=== PATIENT | male | born 1975 | race Caucasian/White ===

== ENCOUNTER 2023-04-30 21:06 | Emergency (ER) | payer MEDICAID, SELFPAY ==
[2023-04-30 21:07] VITALS: BP 158/95; PULSE 90; RESP 18; TEMP 36.6; O2SAT 100; BMI 34.0
[2023-04-30 21:30] VITALS: BP 153/109; PULSE 90; O2SAT 97
--- NOTE | 2023-04-30 21:55 | CT_ITS ---
PROCEDURE INFORMATION: Exam: CT Abdomen And Pelvis With Contrast Exam date and time: 04/30/2023 10:17 PM Age: 48 years old Clinical indication: Abdominal pain; Epigastric; Additional info: Epigastric and periumbilical abd pain, ttp TECHNIQUE: Imaging protocol: Computed tomography of the abdomen and pelvis with contrast. Radiation optimization: All CT scans at this facility use at least one of these dose optimization techniques: automated exposure control; mA and/or kV adjustment per patient size (includes targeted exams where dose is matched to clinical indication); or iterative reconstruction. Contrast material: ISOVUE; Contrast volume: 75 ml; Contrast route: IV; REPORTING DATA: Count of CT and Cardiac NM exams in prior 12 months: This patient has received 0 known CTs and 0 known cardiac nuclear medicine studies in the 12 months prior to the current study. COMPARISON: No relevant prior studies available. FINDINGS: Liver: Normal. No mass. Gallbladder and bile ducts: Normal. No calcified stones. No ductal dilation. Pancreas: Normal. No ductal dilation. Spleen: Normal. No splenomegaly. Adrenal glands: Normal. No mass. Kidneys and ureters: Normal. No hydronephrosis. Stomach and bowel: There is colonic diverticulosis with no significant diverticuli are inflammation. There is mild scattered wall thickening in the descending colon and sigmoid versus underdistention. No evidence of bowel obstruction. Appendix: The appendix is normal. Intraperitoneal space: Unremarkable. No free air. No significant fluid collection. Vasculature: Normal for age. No abdominal aortic aneurysm. Lymph nodes: Unremarkable. No enlarged lymph nodes. Urinary bladder: The bladder wall is thickened with incomplete distention. Reproductive: Unremarkable as visualized. Bones/joints: Unremarkable. No acute fracture. Soft tissues: There is a small supraumbilical fat containing hernia present. IMPRESSION: 1. Mild wall thickening versus underdistention in the distal colon. Correlate for colitis clinically. There are also distal colonic diverticuli present without significant diverticular inflammation. 2. The bladder wall is thickened suspicious for possible cystitis. 3. Small-sized fat containing supraumbilical ventral abdominal wall hernia.
--- NOTE | 2023-04-30 21:56 | [facility].EDGENADL ---
Discharge Plan Disposition Patient Disposition: Home, Self-Care Chief Complaint: Abdominal Pain Referrals Follow up/Referrals: Provider,MD Mesfin [Primary Care Provider] - See instructions Scott Mccarthy MD [Staff Physician] - See instructions Activity Restrictions/Add. Instructions Additional Instructions/Restrictions: Call your family doctor to establish care for this visit to the emergency department and schedule follow-up within 48 hours to ensure improvement. If you have any worsening of your condition or any other concerning signs or symptoms, return to the emergency department or your primary care doctor for further evaluation. Take Tylenol 1000 mg every 6 hours (4 times daily) and ibuprofen 400 mg every 6 hours (4 times daily) as needed with food and water to prevent GI upset and kidney damage. Clinical Impressions Clinical Impression: Abdominal pain Qualifiers: Abdominal location: periumbilical Qualified Code(s): R10.33 - Periumbilical pain Ventral hernia Qualifiers: Obstruction and gangrene presence: without obstruction or gangrene Qualified Code(s): K43.9 - Ventral hernia without obstruction or gangrene Instructions Patient Instructions: DI for Acute Abdominal Pain Discharge ED Provider: [facility] <J Noble Michaud MD - Last Filed: 04/30/23 23:00> General Chief complaint: Abdominal Pain Stated complaint: abd pain Time Seen by Provider: 04/30/23 21:51 Mode of Arrival: Ambulatory Source of Information: Patient Limitations: No Limitations Description of Symptoms (Recalled from ER Triage Doc. by RN): Presents to ED with c/o mid abd pain that is tender upon palpation that started yesterday and has progressively gotten worse. Patient states it is worse when he bends over. Denies taking any meds [employer]. -blood thinner. -N/V/D. PMH:hiatal hernia surgery x2. History of Present Illness HPI narrative: Patient is a 48-year-old male presenting today with abdominal pain has been progressively worsening and constant over the last 48 hours that is located epigastric and periumbilical in the midline. Denies any nausea vomiting or diarrhea. No changes in stools no change in urination no chest pain or shortness of breath. Has a history of bilateral inguinal hernia repair but nothing in his upper abdomen. States this is worse with movement but also has been constant over the last 48 hours. Still having bowel movements no concerns there. Related Data Allergies Allergy/AdvReac Type Severity Reaction Status Date / Time Penicillins AdvReac Verified 04/30/23 22:03 PFS <Lorene Michaud MD - Last Filed: 04/30/23 23:00> [facility] Disclaimer: The information contained in this section may have been updated after the patient was seen, as this information can be updated by other users. Social History (Updated 04/30/23 @ 23:00 by Lorene Michaud MD) Smoking Status: Never smoker alcohol intake: never current occupational status: other Travel in the last 8 weeks: None <Lorene Michaud MD - Last Filed: 04/30/23 23:00> ROS Obtained: Yes All systems reviewed & no additional complaints except as documented Physical Exam <Lorene Michaud MD - Last Filed: 04/30/23 23:00> General General appearance: alert and in no apparent distress Respiratory Respiratory exam: Present normal lung sounds bilaterally; Absent respiratory distress Cardiovascular Cardiovascular exam: Present regular rate; Absent tachycardia Abdominal Exam Abdominal exam: Present soft and tenderness (Epigastric and mid periumbilical abdominal tenderness no rebound or guarding no masses) Neurological Exam Neurological exam: Present alert and oriented X3 Medical Decision Making <Lorene Michaud MD - Last Filed: 04/30/23 23:00> Sameer Inquiry Pt receiving controlled substance: No Vital Signs: 04/30/23 21:07 04/30/23 21:30 04/30/23 22:31 Temperature 97.8 F Temperature Source Oral Pulse Rate 90 75 Pulse Rate [Right] 90 Re
[2023-04-30 21:59] LABS: Microscopic, Urine URINE MICROSCOPIC (MICROSCOPIC)
[2023-04-30 22:05] LABS: Chloride 106 mmol/L (98-107); Potassium 4.1 mmoL/L (3.5-5.1); Sodium 142 mmol/L (136-145)
[2023-04-30 22:05] LABS: Appearance,Urine CLEAR (Clear); Bilirubin,Urine Negative (Negative); Blood, Urine Negative (Negative); Color,Urine YELLOW (Yellow); Glucose,Urine (UA) Negative (Negative); Ketones,Urine Negative (Negative); Leukocyte Esterase,Urine Negative (Negative); Nitrate,Urine Negative (Negative); Protein,Urine Negative (Negative); Specific Gravity, Urine >= 1.030 (1.005-1.030); Urobilinogen,Urine 0.2 EU/dl (0.2)
[2023-04-30 22:07] LABS: Alanine Aminotransferase 26 U/L (12-78); Aspartate Amino Transferase 36 U/L (17-59); Blood Urea Nitrogen 18 mg/dl (9-20); Creatinine Clearance Estimated 162 mL/min (50-200); Estimated Glomerular Filt Rate 80 ml/min (>60); GFR (African American) 97 ML/MIN (>60)
[2023-04-30 22:08] LABS: Albumin Level 4.8 g/dl (3.5-5.0); Albumin/Globulin Ratio 1.6 (1.1-1.8); Alkaline Phosphatase 58 U/L (38-126); Anion Gap 11.1 mEq/L (5-15); Bilirubin,Total 0.6 mg/dl (0.2-1.3); Calcium 8.7 mg/dl (8.4-10.2); Carbon Dioxide 29 mmol/L (22.0-30.0); Glucose 77 mg/dl (74-100); Lipase 57 U/L (23-300); Total Protein,Serum 7.8 g/dl (6.3-8.2)
[2023-04-30 22:11] LABS: Basophils % 0.5 % (0.1-2.0); Eosinophils # 0.2 K/mm3 (0.0-0.4); Eosinophils % 1.7 % (0.1-12.0); Hematocrit 45.8 % (42.0-52.0); Hemoglobin 15.7 g/dL (14.1-18.0); Lymphocytes # 2.1 K/mm3 (0.7-4.5); Lymphocytes % 24.2 % (10-50); Mean Corpuscular HGB Conc 34.3 g/dL (31.8-35.4); Mean Corpuscular Hemoglobin 31.4 pg (27.0-31.2); Mean Corpuscular Volume 91.6 fl (80-94); Mean Platelet Volume 7.6 fl (7.4-10.4); Monocytes # 0.4 K/mm3 (0.1-1.0); Neutrophils # 6.2 K/mm3 (1.8-7.8); Neutrophils % 69.6 % (37.0-80.0); Platelet Count 267 K/mm3 (142-424); Red Cell Distribution Width 13.8 % (11.5-17.5); White Blood Count 8.8 K/mm3 (4.8-10.8)
[2023-04-30 22:31] VITALS: BP 169/108; PULSE 75; RESP 18; O2SAT 97
[2023-04-30 22:37] LABS: Squamous Epithelial Cell,Urine Occasional #/hpf (0-5); WBC,Urine Occasional #/hpf (0-3)
[2023-04-30 23:34] VITALS: BP 162/101; PULSE 91; RESP 20; TEMP 36.6; O2SAT 98
== END 2023-04-30 23:36 | disposition home or self-care (01) ==
PROVIDERS: Student in an Organized Health Care Education/Training Program; Emergency Provider Emergency Medicine
DX: R10.33 Periumbilical pain (principal); K43.9 Ventral hernia without obstruction or gangrene
CPT/HCPCS: 74177; 80053; 81001; 83690; 85025; 96361; 96374; 96375; 99285; J2405; Q9967

== ENCOUNTER 2023-10-14 20:23 | Observation (INO) | payer MEDICAID, SELFPAY ==
[2023-10-14] VITALS (8 sets, daily range): BP systolic 130–147; BP diastolic 85–107; PULSE 74–97; RESP 14–19; TEMP 36.9; O2SAT 94–95; BMI 34.7
--- NOTE | 2023-10-14 20:21 | ECG_ITS ---
APPROVED REPORT Exam: Resting ECG HR:89 bpm ECG Measurements Heart Rate 89 AXES OH 167 P 53 QRSd 98 QRS 24 QT 364 T 36 QTc 410 Conclusion SINUS RHYTHM NORMAL ECG UNCONFIRMED REPORT Electronically signed by : JOHN HAMMONDS, 10/17/2023 06:54:31
--- NOTE | 2023-10-14 20:28 | ED_ITS ---
<Statement entered by Grady Vergara MD - 10/14/23 23:23> I was consulted by the SHANNAN, and we discussed the complexity of the problems being addressed. I approved the treatment and management plan for this patient's care in the emergency department, thus performing a substantive portion of the medical decision making. Grady Vergara MD Discharge Plan Disposition Patient Disposition: Admitted Prescriptions Prescriptions: No Action No Known Home Medications Referrals Follow up/Referrals: Provider,Mesfin, [Primary Care Provider] - See instructions Clinical Impressions Clinical Impression: Chest pain Discharge ED Provider: Grady Vergara HPI <VARGHESE Moran - Last Filed: 10/14/23 22:58> General Chief Complaint: Chest Pain Stated Complaint: Chest pain Time Seen by Provider: 10/14/23 20:28 History of Present Illness HPI narrative: Patient presents for evaluation of chest pain. 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 Patient states that it radiated to his upper back up the left side of his neck and partially down his left upper extremity. It did maryam somewhat with rest however soon as he began exerting himself again it came back. Patient states that it is worst his pain was a 9 out of 10 and currently he rates it as a 4 out of 10. Denies diaphoresis nausea vomiting fever chills hemoptysis hematochezia melena. He has no known significant past medical history and is on no home medications. Related Data Home Medications Medication Instructions Recorded Confirmed No Known Home Medications 05/10/23 05/10/23 Allergies Allergy/AdvReac Type Severity Reaction Status Date / Time Penicillins AdvReac Verified 05/10/23 13:45 PFSH <VARGHESE Moran - Last Filed: 10/14/23 22:58> [facility] Disclaimer: The information contained in this section may have been updated after the patient was seen, as this information can be updated by other users. Surgical History (Updated 05/10/23 @ 13:47 by JAMIE Kelly) History of left knee surgery History of repair of hiatal hernia Social History Smoking Status: Former smoker alcohol intake: never current occupational status: other Travel in the last 8 weeks: None <VARGHESE Moran Last Filed: 10/14/23 22:58> ROS Obtained: Yes Systems reviewed as appropriate & no additional complaints except as documented Physical Exam <VARGHESE Moran Last Filed: 10/14/23 22:58> General General appearance: alert and in no apparent distress Head Head exam: atraumatic and normal inspection Eye Eye exam: Present normal appearance, PERRL and EOMI ENT ENT exam: Present normal exam, normal oropharynx and mucous membranes moist Neck Neck exam: Present normal inspection and full ROM; Absent lymphadenopathy Chest Chest inspection: Present normal inspection and symmetric chest wall rise; Absent tenderness Respiratory Respiratory exam: Present normal lung sounds bilaterally; Absent respiratory distress, wheezes, stridor or accessory muscle use Cardiovascular Cardiovascular exam: Present regular rate, normal rhythm, normal heart sounds, +S1 and +S2 Abdominal Exam Abdominal exam: Present soft and normal bowel sounds; Absent tenderness Extremities Exam Extremities exam: Present normal inspection and full ROM Back Exam Back exam: Present normal inspection and full ROM; Absent tenderness Neurological Exam Neurological exam: Present alert and oriented X3 Psychiatric Psychiatric exam: Present normal affect and normal mood Skin Skin exam: Present warm, dry and normal color HEART Score <VARGHESE Moran Last Filed: 10/14/23 22:58> HEART Score HEART Score assessment performed?: Yes History (anamnesis): Slightly suspicious ECG: Normal Age: 45-65 years Risk factors: No known risk factors Troponin: </= normal limit HEART Score: 1 Critical Care <VARGHESE Moran Last Filed: 10/14/23 22:58> Critical Care Time Critical Care Time: No Medical Decision Making <VARGHESE Moran Last Filed: 10/14/23 22:58> Medical Records Medical records reviewed: Yes I reviewed the patient's medical records. Sameer Inquiry Pt receiving controlled substance: No Vital Signs Vital Signs: 10/14/23 20:23 10/14/23 20:23 10/14/23 20:30 Temperature 98.4 F Temperature Source Oral Pulse Rate 97 H 90 Pulse Rate [Left] 97 H Respiratory Rate 14 16 Blood Pressure 145/107 H Blood Pressure [Right Arm] 143/94 H Blood Pressure Mean 116 Blood Pressure Mean [Right Arm] 110 02 Sat by Pulse Oximetry 95 94 L Oxygen Delivery Method Room Air Room Air 10/14/23 21:00 Temperature Temperature Source Pulse Rate 82 Pulse Rate [Left] Respiratory Rate 16 Blood Pressure 134/97 H Blood Pressure [Right Arm] Blood Pressure Mean 109 Blood Pressure Mean [Right Arm] 02 Sat by Pulse Oximetry 94 L Oxygen Delivery Method Room Air Lab Data Lab results reviewed: Yes I reviewed the patient's lab results. Labs: Lab Results 10/14/23 20:30: WBC 12.5 H, RBC 5.65, Hgb 16.9, Hct 52.7 H, MCV 93.3, MCH 30.0, MCHC 32.2, RDW 13.5, Plt Count 338, MPV 7.9, Neut % (Auto) 75.1, Lymph % (Auto) 18.6, [place] % (Auto) 4.9, Eos % (Auto) 0.6, Baso % (Auto) 0.9, Neut # (Auto) 9.4 H, Lymph # (Auto) 2.3, [place] # (Auto) 0.6, Eos # (Auto) 0.1, Baso # (Auto) 0.1, PT 11.1, INR 1.03, D-Dimer 0.31, Sodium 143, Potassium 4.0, Chloride 108 H, Carbon Dioxide 25, Anion Gap 14.0, BUN 18, Creatinine 1.10, Estimated Creat Clear 150, Estimated GFR 71, Est GFR ( Amer) 86, Glucose 98, Calcium 9.8, Total Bilirubin 1.4 H, AST 32, ALT 25, Alkaline Phosphatase 58, Troponin I < 0.01, Total Protein 7.9, Albumin 4.8, Globulin 3.1, Albumin/Globulin Ratio 1.5, TSH 1.12 10/14/23 20:30 10/14/23 20:30 Response Orders (Tests/Meds): ED MEDICATIONS Generic Name Dose Route Start Last Admin Trade Name Freq PRN Reason Stop Dose Admin Acetaminophen 650 mg 10/14/23 22:53 Acetaminophen 325mg Tab PO 11/13/23 22:52 Q4HP PRN Fever or Mild Pain (1-3) Enoxaparin Sodium 40 mg 10/15/23 09:00 Enoxaparin 40mg/0.4ml Syringe SQ 11/14/23 08:59 DAILY HUGO Morphine Sulfate 2 mg 10/14/23 22:53 Morphine 2mg/Ml Syringe IV 11/13/23 22:52 Q2HP PRN Severe Pain (7-10) Nicotine 21 mg 10/14/23 22:53 Nicotine 21mg/24hr Patch TD 11/13/23 22:52 DAILYP PRN Nicotine Cravings Nitroglycerin 0.4 mg 10/14/23 22:53 Nitroglycerin 0.4mg Sl Tablet SL 11/13/23 22:52 Q5MINP PRN Chest Pain Pantoprazole Sodium 40 mg 10/15/23 09:00 Pantoprazole 40mg Tablet PO 11/14/23 08:59 DAILY HUGO Discontinued Medications Generic Name Dose Route Start Last Admin Trade Name Freq PRN Reason Stop Dose Admin Acetaminophen 1,000 mg 10/14/23 20:35 10/14/23 20:44 Acetaminophen 1,000mg/100ml Vial IV 10/14/23 20:36 1,000 mg ONCE ONE Administration Aspirin 325 mg 10/14/23 20:49 10/14/23 21:03 Aspirin 325mg Tablet PO 10/14/23 20:50 325 mg ONCE ONE Administration Belladonna Alkaloids 60 ml 10/14/23 20:49 10/14/23 21:04 Belladonna Alkaloids 60 Ml Ml PO 10/14/23 20:50 60 ml ONCE ONE Administration Ketorolac Tromethamine 15 mg 10/14/23 20:35 10/14/23 20:43 Ketorolac 30mg/Ml Vial IV 10/14/23 20:36 15 mg ONCE ONE Administration ORDERS Category Date Time Status Cardiology Consult [Consult to Cardiology] [CONS] Cons 10/14/23 22:53 Active Routine Chest XR -- portable [XR chest portable] Stat Exams 10/14/23 20:35 Completed CBC w/Auto Diff [Complete Blood Count Auto Diff] Stat Lab 10/14/23 20:30 Completed CMP [Comprehensive Metabolic Panel] Stat Lab 10/14/23 20:30 Completed Complete Blood Count Auto Diff AMLAB Lab 10/15/23 06:00 Ordered Comprehensive Metabolic Panel AMLAB Lab 10/15/23 06:00 Ordered D-Dimer Stat Lab 10/14/23 20:30 Completed INR [Prothrombin Time INR] Stat Lab 10/14/23 20:30 Completed Lipid Panel AMLAB Lab 10/15/23 06:00 Ordered Magnesium Routine Lab 10/14/23 22:53 Ordered Phosphorous AMLAB Lab 10/15/23 06:00 Ordered Rapid PCR Covid and Flu A/B Stat Lab 10/14/23 21:13 Ordered TSH [Thyroid Stimulating Hormone] Stat Lab 10/14/23 20:30 Completed Trop I [Troponin I] Stat Lab 10/14/23 20:30 Completed Troponin I Q3H Lab 10/14/23 22:36 Received Troponin I Q3H Lab 10/15/23 02:45 Ordered MDM Narrative Medical Decision Narrative: In summary patient is a 48-year-old male who presents to the emergency department for evaluation of pain. Patient is dynamically stable satting at 95% on room air with respiratory rate of 14 upon arrival, and afebrile. Physical exam is unremarkable and nonfocal including reproducible chest back or shoulder pain, no nuchal rigidity, Leo Coma Score 15, normal breath sounds without any adventitious sounds, no carotid bruits or cardiac murmurs.. Differential diagnosis includes ACS versus PE versus dissection versus GERD versus esophagitis etc. Initial workup will be conducted with hematologic labs, twelve-lead EKG, plain film chest x-ray, urinalysis. Initial interventions include Toradol Tylenol aspirin and GI cocktail. Initial workup reviewed by me shows an undetectable troponin and normal D-dimer slightly elevated white count left shift but the remainder of his hematologic workup is unremarkable, his twelve-lead EKG does not show evidence of ACS, informal interpretation plain film chest x-ray shows no evidence of acute disease. Upon repeat evaluation patient has had some moderate improvement with Toradol Tylenol Decadron GI cocktail. Given this I discussed patient management with hospital medicine and they were agreeable for admission for further workup. Patient verbalized understanding and agreement. <Grady Vergara MD - Last Filed: 10/14/23 20:59> Vital Signs Vital Signs: 10/14/23 20:23 10/14/23 20:23 10/14/23 20:30 Temperature 98.4 F Temperature Source Oral Pulse Rate 97 H 90 Pulse Rate [Left] 97 H Respiratory Rate 14 16 Blood Pressure 145/107 H Blood Pressure [Right Arm] 143/94 H Blood Pressure Mean 116 Blood Pressure Mean [Right Arm] 110 02 Sat by Pulse Oximetry 95 94 L Oxygen Delivery Method Room Air Room Air 10/14/23 21:00 Temperature Temperature Source Pulse Rate 82 Pulse Rate [Left] Respiratory Rate 16 Blood Pressure 134/97 H Blood Pressure [Right Arm] Blood Pressure Mean 109 Blood Pressure Mean [Right Arm] 02 Sat by Pulse Oximetry 94 L Oxygen Delivery Method Room Air Lab Data Labs: Lab Results 10/14/23 20:30: WBC 12.5 H, RBC 5.65, Hgb 16.9, Hct 52.7 H, MCV 93.3, MCH 30.0, MCHC 32.2, RDW 13.5, Plt Count 338, MPV 7.9, Neut % (Auto) 75.1, Lymph % (Auto) 18.6, [place] % (Auto) 4.9, Eos % (Auto) 0.6, Baso % (Auto) 0.9, Neut # (Auto) 9.4 H, Lymph # (Auto) 2.3, [place] # (Auto) 0.6, Eos # (Auto) 0.1, Baso # (Auto) 0.1, PT 11.1, INR 1.03, D-Dimer 0.31, Sodium 143, Potassium 4.0, Chloride 108 H, Carbon Dioxide 25, Anion Gap 14.0, BUN 18, Creatinine 1.10, Estimated Creat Clear 150, Estimated GFR 71, Est GFR ( Amer) 86, Glucose 98, Calcium 9.8, Total Bilirubin 1.4 H, AST 32, ALT 25, Alkaline Phosphatase 58, Troponin I < 0.01, Total Protein 7.9, Albumin 4.8, Globulin 3.1, Albumin/Globulin Ratio 1.5, TSH 1.12 Response Orders (Tests/Meds): ED MEDICATIONS Generic Name Dose Route Start Last Admin Trade Name Freq PRN Reason Stop Dose Admin Acetaminophen 650 mg 10/14/23 22:53 Acetaminophen 325mg Tab PO 11/13/23 22:52 Q4HP PRN Fever or Mild Pain (1-3) Enoxaparin Sodium 40 mg 10/15/23 09:00 Enoxaparin 40mg/0.4ml Syringe SQ 11/14/23 08:59 DAILY HUGO Morphine Sulfate 2 mg 10/14/23 22:53 Morphine 2mg/Ml Syringe IV 11/13/23 22:52 Q2HP PRN Severe Pain (7-10) Nicotine 21 mg 10/14/23 22:53 Nicotine 21mg/24hr Patch TD 11/13/23 22:52 DAILYP PRN Nicotine Cravings Nitroglycerin 0.4 mg 04/14/24 22:53 Nitroglycerin 0.4mg Sl Tablet SL 11/13/23 22:52 Q5MINP PRN Chest Pain Pantoprazole Sodium 40 mg 10/15/23 09:00 Pantoprazole 40mg Tablet PO 11/14/23 08:59 DAILY HUGO Discontinued Medications Generic Name Dose Route Start Last Admin Trade Name Freq PRN Reason Stop Dose Admin Acetaminophen 1,000 mg 10/14/23 20:35 10/14/23 20:44 Acetaminophen 1,000mg/100ml Vial IV 10/14/23 20:36 1,000 mg ONCE ONE Administration Aspirin 325 mg 10/14/23 20:49 10/14/23 21:03 Aspirin 325mg Tablet PO 10/14/23 20:50 325 mg ONCE ONE Administration Belladonna Alkaloids 60 ml 10/14/23 20:49 10/14/23 21:04 Belladonna Alkaloids 60 Ml Ml PO 10/14/23 20:50 60 ml ONCE ONE Administration Ketorolac Tromethamine 15 mg 10/14/23 20:35 10/14/23 20:43 Ketorolac 30mg/Ml Vial IV 10/14/23 20:36 15 mg ONCE ONE Administration ORDERS Category Date Time Status Cardiology Consult [Consult to Cardiology] [CONS] Cons 10/14/23 22:53 Active Routine Chest XR -- portable [XR chest portable] Stat Exams 10/14/23 20:35 Completed CBC w/Auto Diff [Complete Blood Count Auto Diff] Stat Lab 10/14/23 20:30 Completed CMP [Comprehensive Metabolic Panel] Stat Lab 10/14/23 20:30 Completed Complete Blood Count Auto Diff AMLAB Lab 10/15/23 06:00 Ordered Comprehensive Metabolic Panel AMLAB Lab 10/15/23 06:00 Ordered D-Dimer Stat Lab 10/14/23 20:30 Completed INR [Prothrombin Time INR] Stat Lab 10/14/23 20:30 Completed Lipid Panel AMLAB Lab 10/15/23 06:00 Ordered Magnesium Routine Lab 10/14/23 22:53 Ordered Phosphorous AMLAB Lab 10/15/23 06:00 Ordered Rapid PCR Covid and Flu A/B Stat Lab 10/14/23 21:13 Ordered TSH [Thyroid Stimulating Hormone] Stat Lab 10/14/23 20:30 Completed Trop I [Troponin I] Stat Lab 10/14/23 20:30 Completed Troponin I Q3H Lab 10/14/23 22:36 Received Troponin I Q3H Lab 10/15/23 02:45 Ordered ECG Data Tracing #1: ECG Narrative: Independently interpreted by me, rate is 89, rhythm is regular, axis is normal, no ST elevation in anatomical contiguous leads, QTc 410.
--- NOTE | 2023-10-14 20:35 | XR_ITS ---
PROCEDURE INFORMATION: Exam: XR Chest Exam date and time: 10/14/2023 8:46 PM Age: 48 years old Clinical indication: Pain; Chest pressure; Additional info: Chest pain TECHNIQUE: Imaging protocol: Radiologic exam of the chest. Views: 1 view. Total images: 1 COMPARISON: CT ABDOMEN PELVIS W CON 04/30/2023 10:17 PM FINDINGS: Lungs: Unremarkable. No consolidation. No pulmonary vascular congestion or edema. Pleural spaces: Unremarkable. No pleural effusion. No pneumothorax. Heart/Mediastinum: Unremarkable. No cardiomegaly. No mediastinal widening or hilar enlargement. Bones/joints: Unremarkable. IMPRESSION: No radiographically acute cardiopulmonary process.
[2023-10-14 20:43] LABS: Basophils # 0.1 K/mm3 (0-0.2); Basophils % 0.9 % (0.1-2.0); Eosinophils # 0.1 K/mm3 (0.0-0.4); Eosinophils % 0.6 % (0.1-12.0); Hematocrit 52.7 % (42.0-52.0); Hemoglobin 16.9 g/dL (14.1-18.0); Lymphocytes # 2.3 K/mm3 (0.7-4.5); Lymphocytes % 18.6 % (10-50); Mean Corpuscular HGB Conc 32.2 g/dL (31.8-35.4); Mean Corpuscular Volume 93.3 fl (80-94); Mean Platelet Volume 7.9 fl (7.4-10.4); Monocytes # 0.6 K/mm3 (0.1-1.0); Monocytes % 4.9 % (1.7-9.3); Neutrophils # 9.4 K/mm3 (1.8-7.8); Neutrophils % 75.1 % (37.0-80.0); Platelet Count 338 K/mm3 (142-424); Red Blood Count 5.65 M/mm3 (4.60-6.20); Red Cell Distribution Width 13.5 % (11.5-17.5); White Blood Count 12.5 K/mm3 (4.8-10.8)
[2023-10-14] MEDS: KETOROLAC 30MG/ML VIAL 15 MG IV (20:43)
[2023-10-14 20:44] LABS: Chloride 108 mmol/L (98-107); Sodium 143 mmol/L (136-145)
[2023-10-14] MEDS: ACETAMINOPHEN 1,000MG/100ML VIAL 1000 MG IV (20:44)
[2023-10-14 20:46] LABS: Alanine Aminotransferase 25 U/L (12-78); Aspartate Amino Transferase 32 U/L (17-59); Bilirubin,Total 1.4 mg/dl (0.2-1.3); Blood Urea Nitrogen 18 mg/dl (9-20); Creatinine Clearance Estimated 150 mL/min (50-200); Estimated Glomerular Filt Rate 71 ml/min (>60); GFR (African American) 86 ML/MIN (>60)
[2023-10-14 20:47] LABS: Albumin Level 4.8 g/dl (3.5-5.0); Albumin/Globulin Ratio 1.5 (1.1-1.8); Alkaline Phosphatase 58 U/L (38-126); Calcium 9.8 mg/dl (8.4-10.2); Carbon Dioxide 25 mmol/L (22.0-30.0); Globulin 3.1 g/dL (1.3-3.2); Glucose 98 mg/dl (74-100); Total Protein,Serum 7.9 g/dl (6.3-8.2)
[2023-10-14 20:49] LABS: INR 1.03 (0.9-1.1); Prothrombin Time 11.1 seconds (10.1-12.5)
[2023-10-14 21:03] LABS: Troponin I < 0.01 ng/ml (0.00-0.034)
[2023-10-14] MEDS: ASPIRIN 325MG TABLET 325 MG PO (21:03)
[2023-10-14] MEDS: BELLADONNA ALKALOIDS 60 ML ML PO (21:04)
[2023-10-14 21:18] LABS: Thyroid Stimulating Hormone 1.12 uIU/mL (0.465-4.68)
[2023-10-14 21:31] LABS: D-Dimer 0.31 ug/mL (0.0-0.5)
--- NOTE | 2023-10-14 22:56 | P.HP_ITS ---
History of Present Illness *Admission Date: 10/14/23 *Reason for visit:: CP *History of present illness: This is a 48 yo obese male with apparent no significant previous medical history other than hiatal hernia repair x2 presented to ED for evaluation of chest pain. 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 Patient states that it radiated to his upper back up the left side of his neck and partially down his left upper extremity. It did maryam somewhat with rest however soon as he began exerting himself again it came back. Patient states that it is worst his pain was a 9 out of 10 and currently he rates it as a 4 out of 10. Denies diaphoresis nausea vomiting fever chills hemoptysis hematochezia melena. He has no known significant past medical history and is on no home medications. Admitt ed for further work up. [facility] Disclaimer: The information contained in this section may have been updated after the patient was seen, as this information can be updated by other users. Surgical History History of left knee surgery History of repair of hiatal hernia Social History Smoking Status: Former smoker alcohol intake: never current occupational status: retired and other Travel in the last 8 weeks: None Review of Systems Review of Systems Review of systems:: pertinent systems reviewed and negative unless documented below Meds Home Medications and Allergies Home Medications Medication Instructions Recorded Confirmed Type No Known Home Medications 05/10/23 10/15/23 History New Prescriptions to Start Prescriptions: Allergies Allergy/AdvReac Type Severity Reaction Status Date / Time Penicillins AdvReac Verified 05/10/23 13:45 Exam Data for Last 24 hours Vital signs and Labs for Last 24 Hours: Temp Pulse Resp BP Pulse Ox O2 Del Method 98.4 F 82 16 134/97 H 94 L Room Air 10/14/23 20:23 10/14/23 21:00 10/14/23 21:00 10/14/23 21:00 10/14/23 21:00 10/14/23 21:00 Laboratory Results - last 24 hr 10/14/23 20:30: WBC 12.5 H, RBC 5.65, Hgb 16.9, Hct 52.7 H, MCV 93.3, MCH 30.0, MCHC 32.2, RDW 13.5, Plt Count 338, MPV 7.9, Neut % (Auto) 75.1, Lymph % (Auto) 18.6, [place] % (Auto) 4.9, Eos % (Auto) 0.6, Baso % (Auto) 0.9, Neut # (Auto) 9.4 H, Lymph # (Auto) 2.3, [place] # (Auto) 0.6, Eos # (Auto) 0.1, Baso # (Auto) 0.1, PT 11.1, INR 1.03, D-Dimer 0.31, Sodium 143, Potassium 4.0, Chloride 108 H, Carbon Dioxide 25, Anion Gap 14.0, BUN 18, Creatinine 1.10, Estimated Creat Clear 150, Estimated GFR 71, Est GFR ( Amer) 86, Glucose 98, Calcium 9.8, Total Bilirubin 1.4 H, AST 32, ALT 25, Alkaline Phosphatase 58, Troponin I < 0.01, Total Protein 7.9, Albumin 4.8, Globulin 3.1, Albumin/Globulin Ratio 1.5, TSH 1.12 I & O for Last 24 hours: Intake & Output 10/11/23 10/12/23 10/13/23 10/14/23 23:59 23:59 23:59 23:59 Weight 129.274 kg Constitutional Constitutional: no acute distress *Routine HEENT Exam Head: Present normocephalic Eye: Present EOMI and PERRL ENT: Present mucous membranes moist *Routine Neck Exam Neck: Present supple; Absent lymphadenopathy *Routine Respiratory Exam Respiratory: Present CTA bilaterally *Routine Cardiovascular Exam Cardiovascular: Present RRR *Routine Abdominal Exam Abdominal: Present soft and normoactive bowel sounds; Absent tenderness *Routine Rectal Exam Rectal:: deferred *Routine Genitalia Exam Genitalia:: deferred *Routine Extremities Exam Extremities: Absent cyanosis, clubbing or edema *Routine Skin Exam Skin: Present warm; Absent rash *Routine Neurological Exam Neurological: Present alert and oriented X3 H&P: Result Imaging and Cardiology Chest x-ray: Status: image reviewed by me, Preliminary report and final report EKG: Status: image reviewed by me, Preliminary report and final report Assessment and Plan *Assessment and plan (1) Chest pain: Status: Acute Qualifiers: Chest pain type: unspecified Qualified Code(s): R07.9 - Chest pain, unspecified Category: Medical Code(s): R07.9 - Chest pain, unspecified (2) Obesity (BMI 30-39.9): Status: Acute Category: Medical Code(s): E66.9 - Obesity, unspecified Plan 48 yo obese male with apparent no significant previous medical history other than hiatal hernia repair x2 presented to ED for evaluation of chest pain. Patient reports chest pain shortness of breath that began suddenly this afternoon. Patient been having intermittent chest pain for a while, this time was the worse. He had a stress test few years ago. Does not currently take any medications. Initial work up is negative. EKG is also negative. Discussed with ED. Due to high cardiac risk, including familiy history of earlier heart attack, we agreed for admission. Plan as follow: - Intermittent Chest pain: to rule out ACS. Admit patient for continous cardiac monitoring serial troponin trend. Negative repeat EKG if [place] pain episode' aspirin 325mg given art ER Cardiology consult nitro SL as needed. repeat labs in the morning. Including lipid, a1c to complete cardiac risk assessment Obesity: educated on weight management as a modification of lifestyles to reduce the risk of cardiac event PCP to follow up abnormal BMI on protonix, Full code Rounded on patient after nurse practitioner. Personally examined and interviewed patient. Agree with exam findings and care plan as documented.
[2023-10-14 23:05] LABS: Magnesium 2.2 mg/dl (1.6-2.3)
[2023-10-14 23:11] LABS: Troponin I 0.01 ng/ml (0.00-0.034)
--- NOTE | 2023-10-14 23:36 | PC.NURSE ---
Attempted report. Eugenie will call back.
--- NOTE | 2023-10-14 23:46 | PC.NURSE ---
Report given to Eugenie.
--- NOTE | 2023-10-14 23:55 | PC.NURSE ---
Medardo arrived to floor via wheelchair from ED at 23:51.
[2023-10-15] VITALS (9 sets, daily range): BP systolic 127–138; BP diastolic 60–85; PULSE 60–90; RESP 16; TEMP 36.6; O2SAT 91–95; BMI 35.0; BMI 34.9
[2023-10-15 03:14] LABS: Troponin I 0.03 ng/ml (0.00-0.034)
[2023-10-15 04:12] LABS: Coronavirus 19, PCR Not Detected (NotDetected); Influenza A, PCR Not Detected (NotDetected); Influenza B, PCR Not Detected (NotDetected)
--- NOTE | 2023-10-15 05:10 | PC.NURSE ---
Pt is alert and oriented. Has no complained of any chest pain, pt stated he had some pains here and there rated at a 2, but pt states it was nothing to ask for medication for. Pt has had no issues with sob or dizziness. Pt has rested since arriving. No complaints from the patient. Independent in the room. Call light in reach.
[2023-10-15 06:43] LABS: Basophils # 0.1 K/mm3 (0-0.2); Basophils % 0.8 % (0.1-2.0); Chloride 109 mmol/L (98-107); Eosinophils # 0.1 K/mm3 (0.0-0.4); Eosinophils % 1.4 % (0.1-12.0); Hematocrit 46.7 % (42.0-52.0); Hemoglobin 15.5 g/dL (14.1-18.0); Lymphocytes # 2.2 K/mm3 (0.7-4.5); Lymphocytes % 25.4 % (10-50); Mean Corpuscular HGB Conc 33.2 g/dL (31.8-35.4); Mean Corpuscular Hemoglobin 30.8 pg (27.0-31.2); Mean Corpuscular Volume 92.6 fl (80-94); Monocytes # 0.5 K/mm3 (0.1-1.0); Monocytes % 5.5 % (1.7-9.3); Neutrophils # 5.8 K/mm3 (1.8-7.8); Platelet Count 302 K/mm3 (142-424); Potassium 3.4 mmoL/L (3.5-5.1); Red Blood Count 5.04 M/mm3 (4.60-6.20); Red Cell Distribution Width 13.7 % (11.5-17.5); Sodium 138 mmol/L (136-145); White Blood Count 8.6 K/mm3 (4.8-10.8)
[2023-10-15 06:45] LABS: Alanine Aminotransferase 18 U/L (12-78); Aspartate Amino Transferase 27 U/L (17-59); Blood Urea Nitrogen 20 mg/dl (9-20); Creatinine Clearance Estimated 167 mL/min (50-200); Estimated Glomerular Filt Rate 80 ml/min (>60); GFR (African American) 97 ML/MIN (>60)
[2023-10-15 06:46] LABS: Albumin Level 4.1 g/dl (3.5-5.0); Albumin/Globulin Ratio 1.7 (1.1-1.8); Alkaline Phosphatase 55 U/L (38-126); Anion Gap 7.4 mEq/L (5-15); Bilirubin,Total 1.2 mg/dl (0.2-1.3); Calcium 8.9 mg/dl (8.4-10.2); Carbon Dioxide 25 mmol/L (22.0-30.0); Chol/HDL Ratio 5.1 (1-3.5); Cholesterol 205 mg/dl (140-200); Globulin 2.4 g/dL (1.3-3.2); Glucose 102 mg/dl (74-100); HDL Cholesterol 40 mg/dl (40-60); Phosphorous 4.5 mg/dl (2.5-4.5); Total Protein,Serum 6.5 g/dl (6.3-8.2); Triglycerides 62 mg/dl (30-150); VLDL Cholesterol 12 mg/dL (0-40)
[2023-10-15 06:57] LABS: Direct LDL Cholesterol 120.96 mg/dL (100-129)
[2023-10-15] MEDS: PANTOPRAZOLE 40MG TABLET 40 MG PO (08:30)
[2023-10-15] MEDS: ENOXAPARIN 40MG/0.4ML SYRINGE 40 MG SQ (08:30)
[2023-10-15 09:20] LABS: 25-OH Vitamin D, Total 17.8 ng/mL (30-100)
[2023-10-15] MEDS: ERGOCALCIFEROL 50,000 UNITS (1.25MG) CAPSULE 50000 UNIT PO (10:13)
--- NOTE | 2023-10-15 10:30 | CA_ITS ---
APPROVED REPORT EXAM: Comprehensive 2D, Doppler, and color-flow Echocardiogram Steward/Stewardess Second: Zaynab Caldera RT(R) Ht: 6 ft 3 in Wt: 288lbs BSA: 2.56 BP: 134/97 mmHg Indications: angina, CP, ex smoker, SOB, obesity 2D Dimensions LVEF (Don's) 46.90 % M: 52 - 72 LV Volume 125.00 mL M: 62 - 150 LV Volume Index 48.8 mL/m2 M: 34 - 74 LA Volume 44.20 mL LA Volume Index 17.27 mL/m2 (M/F) 16-34 EF AP4 56.60 % EF AP2 43.5 % EF BP 46.9 % GL Strain -13.5 % M-Mode Dimensions RVDd 2.85 cm (0.9-2.6) LA Diam 3.95 cm (1.9-4.0) LVDd 5.64 cm (3.5-5.7) LVDs 4.27 cm (3.5-5.7) IVSd 0.98 cm (0.6-1.1) PWd 0.98 cm (0.6-1.1) EF (Teich) 47.70% FS 24.30% EDV (Teich) 156.20 mL ESV (Teich) 81.70 mL LV Diastology E Decel Time 260 (160-240 msec) E/A Ratio 0.7 Mitral Valve MV E Max Kareem. 61.0 (40-130 cm/s) MV A Velocity 92.0 (40-130 cm/s) E/A Ratio 0.66 MV PHT 76.0 ms Left Ventricle The left ventricle is normal size. The left ventricular systolic function is normal. The left ventricular ejection fraction is within the normal range. There is increased LV wall thickness. There is normal LV segmental wall motion. Transmitral Doppler flow pattern suggests impaired LV relaxation. LVEF is 55%. Right Ventricle The right ventricle is normal size. The right ventricular systolic function is normal. Atria The left atrium size is normal. The right atrium size is normal. There is no Doppler evidence of interatrial shunt. Aortic Valve The aortic valve is mildly thickened, cannot entirely rule out bicuspid aortic valve. There is no aortic valvular stenosis. Trace aortic regurgitation. Mitral Valve The mitral valve is normal in structure. No evidence of mitral valve stenosis. Trace mitral regurgitation. Tricuspid Valve The tricuspid valve leaflets are thin and pliable Trace tricuspid regurgitation. There is insufficient TR jet to estimate RVSP. Pulmonic Valve The pulmonary valve is normal in structure. Trace pulmonic regurgitation. Great Vessels The aortic root is normal in size. The ascending aorta is normal in size. IVC is normal in size and collapses >50% with inspiration. Pericardium There is no pericardial effusion. Other Information Study Quality: Fair Conclusion Normal biventricular systolic function. No evidence of regional wall motion abnormalities. No significant valvular stenosis or regurgitation. The aortic valve is mildly thickened, cannot entirely rule out bicuspid aortic valve. Electronically signed by : Kortney Capellan MD 10/15/2023 14:14:44
--- NOTE | 2023-10-15 10:32 | EXP.CARD.CON ---
[facility] Disclaimer: The information contained in this section may have been updated after the patient was seen, as this information can be updated by other users. Surgical History (Updated 05/10/23 @ 13:47 by JAMIE Kelly) History of left knee surgery History of repair of hiatal hernia Social History (Updated 10/15/23 @ 00:23 by Malini Feliciano RN) Smoking Status: Former smoker alcohol intake: never current occupational status: retired and other Travel in the last 8 weeks: None Exam Data for Last 24 hours Vital signs and Labs for Last 24 Hours: Temp Pulse Resp BP Pulse Ox O2 Del Method 97.8 F 61 16 131/60 91 L Room Air 10/15/23 07:28 10/15/23 07:28 10/15/23 07:28 10/15/23 07:28 10/15/23 07:28 10/15/23 09:00 Laboratory Results - last 24 hr 10/14/23 20:30: WBC 12.5 H, RBC 5.65, Hgb 16.9, Hct 52.7 H, MCV 93.3, MCH 30.0, MCHC 32.2, RDW 13.5, Plt Count 338, MPV 7.9, Neut % (Auto) 75.1, Lymph % (Auto) 18.6, [place] % (Auto) 4.9, Eos % (Auto) 0.6, Baso % (Auto) 0.9, Neut # (Auto) 9.4 H, Lymph # (Auto) 2.3, [place] # (Auto) 0.6, Eos # (Auto) 0.1, Baso # (Auto) 0.1, PT 11.1, INR 1.03, D-Dimer 0.31, Sodium 143, Potassium 4.0, Chloride 108 H, Carbon Dioxide 25, Anion Gap 14.0, BUN 18, Creatinine 1.10, Estimated Creat Clear 150, Estimated GFR 71, Est GFR ( Amer) 86, Glucose 98, Calcium 9.8, Magnesium 2.2, Total Bilirubin 1.4 H, AST 32, ALT 25, Alkaline Phosphatase 58, Troponin I < 0.01, Total Protein 7.9, Albumin 4.8, Globulin 3.1, Albumin/Globulin Ratio 1.5, TSH 1.12 10/14/23 22:36: Troponin I 0.01 10/15/23 02:45: Troponin I 0.03 10/15/23 04:00: SARS-CoV-2 (PCR) Not detected, Influenza A Untype (PCR) Not detected, Influenza Type B (PCR) Not detected 10/15/23 05:39: WBC 8.6 D, RBC 5.04, Hgb 15.5, Hct 46.7, MCV 92.6, MCH 30.8, MCHC 33.2, RDW 13.7, Plt Count 302, MPV 8.0, Neut % (Auto) 67.0, Lymph % (Auto) 25.4, [place] % (Auto) 5.5, Eos % (Auto) 1.4, Baso % (Auto) 0.8, Neut # (Auto) 5.8, Lymph # (Auto) 2.2, [place] # (Auto) 0.5, Eos # (Auto) 0.1, Baso # (Auto) 0.1, Sodium 138, Potassium 3.4 L, Chloride 109 H, Carbon Dioxide 25, Anion Gap 7.4, BUN 20, Creatinine 1.00, Estimated Creat Clear 167, Estimated GFR 80, Est GFR ( Amer) 97, Glucose 102 H, Calcium 8.9, Phosphorus 4.5, Total Bilirubin 1.2, AST 27, ALT 18 D, Alkaline Phosphatase 55, Total Protein 6.5, Albumin 4.1 D, Globulin 2.4, Albumin/Globulin Ratio 1.7, Triglycerides 62, Cholesterol 205 H, LDL Cholesterol Direct 120.96, VLDL Cholesterol 12, HDL Cholesterol 40, Cholesterol/HDL Ratio 5.1 H, 25-OH Vitamin D Total 17.8 L I & O for Last 24 hours: Intake & Output 10/12/23 10/13/23 10/14/23 10/15/23 23:59 23:59 23:59 23:59 Output Total 0 / 0 Balance 0 / 0 Weight 285 lb 288 lb Meds Home Medications and Allergies Home Medications Medication Instructions Recorded Confirmed Type No Known Home Medications 05/10/23 10/15/23 History New Prescriptions to Start Prescriptions: Allergies Allergy/AdvReac Type Severity Reaction Status Date / Time Penicillins AdvReac Verified 05/10/23 13:45
--- NOTE | 2023-10-15 10:32 | EXP.CARD.CON ---
History of Present Illness History of Present Illness Consult date: 10/15/23 Requesting physician: Naveen Isabel Consult reason: chest pain Chief complaint: Chest pain History of present illness: 48-year-old white male with history of obesity (BMI 35) and history of hernia repair, otherwise no personal past medical history but admits he does not go to the regularly. 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 He came inside and rested for several hours with some mild lingering of symptoms continuing. He felt slightly better laying down. No vomiting or GI symptoms. He went back outside and after walking up an incline had reproduction of chest discomfort so he came to the emergency room. D-dimer was normal, serial troponins normal but he was kept overnight for observation. EKG shows sinus rhythm without ischemia. He reports he is symptom-free lying in bed this morning. Patient's father had bypass at age 58, patient's grandfather had massive TN at age 48. Patient is a non-smoker. His weight has fluctuated over the past year. He was originally over 320 pounds, had lost down to 260 now back up to 288 so he has had some worsening shortness of breath with his weight gain recently. BP stable here, LDL cholesterol 120, non-smoker nondiabetic. [facility] Disclaimer: The information contained in this section may have been updated after the patient was seen, as this information can be updated by other users. Surgical History History of left knee surgery History of repair of hiatal hernia Social History Smoking Status: Former smoker alcohol intake: never current occupational status: retired and other Travel in the last 8 weeks: None Review of Systems Constitutional Constitutional: Denies fatigue and Denies weakness Eyes Eyes: Denies loss of vision ENT Ears, Nose, Mouth, and Throat: Denies hearing loss and Denies vertigo *Cardiovascular Cardiovascular: Reports chest pain, Reports dyspnea and Denies syncope *Respiratory Respiratory: Denies cough and Reports dyspnea *Gastrointestinal Gastrointestinal: Denies change in stool character, Denies nausea and Denies vomiting *Genitourinary Genitourinary: Denies difficulty urinating *Musculoskeletal Musculoskeletal: Denies muscle weakness Integumentary/Breasts Skin/Breast: Denies changing lesions *Neurologic Neurologic: Denies loss of vision, Denies syncope, Denies vertigo and Denies weakness Endocrine Endocrine: Denies fatigue Exam Data for Last 24 hours Vital signs and Labs for Last 24 Hours: Temp Pulse Resp BP Pulse Ox O2 Del Method 97.8 F 61 16 131/60 91 L Room Air 10/15/23 07:28 10/15/23 07:28 10/15/23 07:28 10/15/23 07:28 10/15/23 07:28 10/15/23 09:00 Laboratory Results - last 24 hr 10/14/23 20:30: WBC 12.5 H, RBC 5.65, Hgb 16.9, Hct 52.7 H, MCV 93.3, MCH 30.0, MCHC 32.2, RDW 13.5, Plt Count 338, MPV 7.9, Neut % (Auto) 75.1, Lymph % (Auto) 18.6, [place] % (Auto) 4.9, Eos % (Auto) 0.6, Baso % (Auto) 0.9, Neut # (Auto) 9.4 H, Lymph # (Auto) 2.3, [place] # (Auto) 0.6, Eos # (Auto) 0.1, Baso # (Auto) 0.1, PT 11.1, INR 1.03, D-Dimer 0.31, Sodium 143, Potassium 4.0, Chloride 108 H, Carbon Dioxide 25, Anion Gap 14.0, BUN 18, Creatinine 1.10, Estimated Creat Clear 150, Estimated GFR 71, Est GFR ( Amer) 86, Glucose 98, Calcium 9.8, Magnesium 2.2, Total Bilirubin 1.4 H, AST 32, ALT 25, Alkaline Phosphatase 58, Troponin I < 0.01, Total Protein 7.9, Albumin 4.8, Globulin 3.1, Albumin/Globulin Ratio 1.5, TSH 1.12 10/14/23 22:36: Troponin I 0.01 10/15/23 02:45: Troponin I 0.03 10/15/23 04:00: SARS-CoV-2 (PCR) Not detected, Influenza A Untype (PCR) Not detected, Influenza Type B (PCR) Not detected 10/15/23 05:39: WBC 8.6 D, RBC 5.04, Hgb 15.5, Hct 46.7, MCV 92.6, MCH 30.8, MCHC 33.2, RDW 13.7, Plt Count 302, MPV 8.0, Neut % (Auto) 67.0, Lymph % (Auto) 25.4, [place] % (Auto) 5.5, Eos % (Auto) 1.4, Baso % (Auto) 0.8, Neut # (Auto) 5.8, Lymph # (Auto) 2.2, [place] # (Auto) 0.5, Eos # (Auto) 0.1, Baso # (Auto) 0.1, Sodium 138, Potassium 3.4 L, Chloride 109 H, Carbon Dioxide 25, Anion Gap 7.4, BUN 20, Creatinine 1.00, Estimated Creat Clear 167, Estimated GFR 80, Est GFR ( Amer) 97, Glucose 102 H, Calcium 8.9, Phosphorus 4.5, Total Bilirubin 1.2, AST 27, ALT 18 D, Alkaline Phosphatase 55, Total Protein 6.5, Albumin 4.1 D, Globulin 2.4, Albumin/Globulin Ratio 1.7, Triglycerides 62, Cholesterol 205 H, LDL Cholesterol Direct 120.96, VLDL Cholesterol 12, HDL Cholesterol 40, Cholesterol/HDL Ratio 5.1 H, 25-OH Vitamin D Total 17.8 L I & O for Last 24 hours: Intake & Output 10/12/23 10/13/23 10/14/23 10/15/23 23:59 23:59 23:59 23:59 Output Total 0 / 0 Balance 0 / 0 Weight 285 lb 288 lb Meds Home Medications and Allergies Home Medications Medication Instructions Recorded Confirmed Type No Known Home Medications 05/10/23 10/15/23 History New Prescriptions to Start Prescriptions: Allergies Allergy/AdvReac Type Severity Reaction Status Date / Time Penicillins AdvReac Verified 05/10/23 13:45 Assessment and Plan *Assessment and plan (1) Angina pectoris: Status: Acute Category: Medical Code(s): I20.9 - Angina pectoris, unspecified (2) Obesity: Status: Acute Category: Medical Code(s): E66.9 - Obesity, unspecified (3) Family history of coronary arteriosclerosis: Status: Acute Category: Medical Code(s): Z82.49 - Family history of ischemic heart disease and other diseases of the circulatory system Plan Angia Pectoris - chest pain/pressure 9/10 radiating to back, between shoulder blades, worse with exertion, better with rest. - Serial Trop x3 - normal - EKG: SR without ischemia - TN ruled out but cannot excluded underlying CAD given pts age, history of morbid obesity, and Father/Grandfater both having TN/CABG at middle age - discussed treatment options with pt. Will obtain 2D ECHO and ambulate him around the hospital. If both normal consider DC, otherwise consider pre-dischage LHC - start ASA, Statin, BB and PRN Ntg until ischemic w/u (whether IP or OP) is complete Obesity - encouraged weight loss efforts Fam Hx of CAD - Father - Bypass at 58 - Grandfather - TN at 48 - will proceed with aggressive CV risk factor modification and workup Addendum: Echo reports normal LV function without wall motion changes. Patient is up ambulating several laps around the telemetry floor without symptoms. He remains symptom-free. He is agreeable to discharge home with medications and stress test within the next week. Advised no heavy exertion, he is to return to the emergency room with any return of symptoms.
--- NOTE | 2023-10-15 10:41 | ECG_ITS ---
APPROVED REPORT Exam: Resting ECG HR:59 bpm ECG Measurements Heart Rate 59 AXES CA 184 P 46 QRSd 102 QRS 7 QT 428 T 51 QTc 427 Conclusion SINUS BRADYCARDIA NONSPECIFIC T-WAVE ABNORMALITY BORDERLINE ECG UNCONFIRMED REPORT Electronically signed by : Sarthak Mercado MD 10/15/2023 20:16:03
[2023-10-15] MEDS: ASPIRIN EC 81MG TABLET 81 MG PO (11:24)
[2023-10-15] MEDS: METOPROLOL SUCCINATE XL 25MG TABLET 25 MG PO (11:24)
--- NOTE | 2023-10-15 14:28 | PC.NURSE ---
WALKED WITH PT IN HALLWAY X2 LAPS PER CARDS RECOMMENDATION. PT TOLERATED WELL, NO CHEST PAIN OR SOA NOTED.
--- NOTE | 2023-10-15 14:56 | EXP.DC.SUM ---
General Admission date:: 10/14/23 Discharge date: 10/15/23 HPI HPI HPI: This is a 48 yo obese male with apparent no significant previous medical history other than hiatal hernia repair x2 presented to ED for evaluation of chest pain. 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 Patient states that it radiated to his upper back up the left side of his neck and partially down his left upper extremity. It did maryam somewhat with rest however soon as he began exerting himself again it came back. Patient states that it is worst his pain was a 9 out of 10 and currently he rates it as a 4 out of 10. Denies diaphoresis nausea vomiting fever chills hemoptysis hematochezia melena. He has no known significant past medical history and is on no home medications. Admitted for further work up. Hospital Course Hospital Course Hospital Course: 48 yo obese male with apparent no significant previous medical history other than hiatal hernia repair x2 presented to ED for evaluation of chest pain. Patient reports chest pain shortness of breath that began suddenly this afternoon. Patient been having intermittent chest pain for a while, this time was the worse. He had a stress test few years ago. Does not currently take any medications. Initial work up is negative. EKG is also negative. Discussed with ED. Due to high cardiac risk, including familiy history of earlier heart attack, we agreed for admission. Evaluated by cardiology. Echo obtained that was normal. No chest pain at this time. Will discharge home and follow-up as an outpatient for further management and ischemic workup. Problems addressed as follows: - Intermittent Chest pain: to rule out ACS. Patient admitted to medicine for monitoring overnight. Serial troponins negative. EKG with no ST changes. Echo obtained showing preserved ejection fraction. Cardiology consulted and evaluated patient. Had no pain on exertion during evaluation in the hospital. Will initiate patient on aspirin 81 mg daily, Lipitor 80 mg nightly, metoprolol 25 mg daily. Plan for close follow-up as an outpatient for further management with stress testing. Stable to discharge at this time. -LDL 120. -Morning (fasting) glucose 102 Exam Data for Last 24 hours Vital signs and Labs for Last 24 Hours: Temp Pulse Resp BP Pulse Ox O2 Del Method 97.8 F 67 16 128/68 94 L Room Air 10/15/23 12:50 10/15/23 12:50 10/15/23 12:50 10/15/23 12:50 10/15/23 12:50 10/15/23 14:46 Laboratory Results - last 24 hr 10/14/23 20:30: WBC 12.5 H, RBC 5.65, Hgb 16.9, Hct 52.7 H, MCV 93.3, MCH 30.0, MCHC 32.2, RDW 13.5, Plt Count 338, MPV 7.9, Neut % (Auto) 75.1, Lymph % (Auto) 18.6, [place] % (Auto) 4.9, Eos % (Auto) 0.6, Baso % (Auto) 0.9, Neut # (Auto) 9.4 H, Lymph # (Auto) 2.3, [place] # (Auto) 0.6, Eos # (Auto) 0.1, Baso # (Auto) 0.1, PT 11.1, INR 1.03, D-Dimer 0.31, Sodium 143, Potassium 4.0, Chloride 108 H, Carbon Dioxide 25, Anion Gap 14.0, BUN 18, Creatinine 1.10, Estimated Creat Clear 150, Estimated GFR 71, Est GFR ( Amer) 86, Glucose 98, Calcium 9.8, Magnesium 2.2, Total Bilirubin 1.4 H, AST 32, ALT 25, Alkaline Phosphatase 58, Troponin I < 0.01, Total Protein 7.9, Albumin 4.8, Globulin 3.1, Albumin/Globulin Ratio 1.5, TSH 1.12 10/14/23 22:36: Troponin I 0.01 10/15/23 02:45: Troponin I 0.03 10/15/23 04:00: SARS-CoV-2 (PCR) Not detected, Influenza A Untype (PCR) Not detected, Influenza Type B (PCR) Not detected 10/15/23 05:39: WBC 8.6 D, RBC 5.04, Hgb 15.5, Hct 46.7, MCV 92.6, MCH 30.8, MCHC 33.2, RDW 13.7, Plt Count 302, MPV 8.0, Neut % (Auto) 67.0, Lymph % (Auto) 25.4, [place] % (Auto) 5.5, Eos % (Auto) 1.4, Baso % (Auto) 0.8, Neut # (Auto) 5.8, Lymph # (Auto) 2.2, [place] # (Auto) 0.5, Eos # (Auto) 0.1, Baso # (Auto) 0.1, Sodium 138, Potassium 3.4 L, Chloride 109 H, Carbon Dioxide 25, Anion Gap 7.4, BUN 20, Creatinine 1.00, Estimated Creat Clear 167, Estimated GFR 80, Est GFR ( Amer) 97, Glucose 102 H, Calcium 8.9, Phosphorus 4.5, Total Bilirubin 1.2, AST 27, ALT 18 D, Alkaline Phosphatase 55, Total Protein 6.5, Albumin 4.1 D, Globulin 2.4, Albumin/Globulin Ratio 1.7, Triglycerides 62, Cholesterol 205 H, LDL Cholesterol Direct 120.96, VLDL Cholesterol 12, HDL Cholesterol 40, Cholesterol/HDL Ratio 5.1 H, 25-OH Vitamin D Total 17.8 L I & O for Last 24 hours: Intake & Output 10/12/23 10/13/23 10/14/23 10/15/23 23:59 23:59 23:59 23:59 Intake Total 420 / 420 Output Total 0 / 0 Balance 420 / 420 Weight 129.274 kg 130 kg Constitutional Constitutional: no acute distress, obese and cooperative *Routine HEENT Exam Head: Present normocephalic Eye: Present EOMI and PERRL ENT: Present mucous membranes moist *Routine Neck Exam Neck: Present supple; Absent lymphadenopathy Routine Chest/Breast/Axilla Exam Chest wall: Absent tenderness *Routine Respiratory Exam Respiratory: Present CTA bilaterally; Absent rhonchi, stridor, wheezes or crackles *Routine Cardiovascular Exam Cardiovascular: Present RRR *Routine Abdominal Exam Abdominal: Present soft and normoactive bowel sounds; Absent tenderness *Routine Rectal Exam Patient deferred: visual exam *Routine Exam Patient deferred: penile exam *Routine Extremities Exam Extremities: Absent cyanosis, clubbing or edema Routine Back/Spine/Pelvis Exam Comments: Tender in left upper trapezius *Routine Skin Exam Skin: Present warm; Absent rash *Routine Neurological Exam Neurological: Present alert, oriented X3 and moving all extremities; Absent altered mental status Results Data Completed and Pending Labs on day of discharge: Labs from last 24 hours 10/15/23 10/15/23 10/15/23 05:39 04:00 02:45 WBC 8.6 D RBC 5.04 Hgb 15.5 Hct 46.7 MCV 92.6 MCH 30.8 MCHC 33.2 RDW 13.7 Plt Count 302 MPV 8.0 Neut % (Auto) 67.0 Lymph % (Auto) 25.4 [place] % (Auto) 5.5 Eos % (Auto) 1.4 Baso % (Auto) 0.8 Neut # (Auto) 5.8 Lymph # (Auto) 2.2 [place] # (Auto) 0.5 Eos # (Auto) 0.1 Baso # (Auto) 0.1 PT INR D-Dimer Sodium 138 Potassium 3.4 L Chloride 109 H Carbon Dioxide 25 Anion Gap 7.4 BUN 20 Creatinine 1.00 Estimated Creat Clear 167 Estimated GFR 80 Est GFR ( Amer) 97 Glucose 102 H Calcium 8.9 Phosphorus 4.5 Magnesium Total Bilirubin 1.2 AST 27 ALT 18 D Alkaline Phosphatase 55 Troponin I 0.03 Total Protein 6.5 Albumin 4.1 D Globulin 2.4 Albumin/Globulin Ratio 1.7 Triglycerides 62 Cholesterol 205 H LDL Cholesterol Direct 120.96 VLDL Cholesterol 12 HDL Cholesterol 40 Cholesterol/HDL Ratio 5.1 H 25-OH Vitamin D Total 17.8 L TSH SARS-CoV-2 (PCR) Not detected Influenza A Untype (PCR) Not detected Influenza Type B (PCR) Not detected 10/14/23 10/14/23 22:36 20:30 WBC 12.5 H RBC 5.65 Hgb 16.9 Hct 52.7 H MCV 93.3 MCH 30.0 MCHC 32.2 RDW 13.5 Plt Count 338 MPV 7.9 Neut % (Auto) 75.1 Lymph % (Auto) 18.6 [place] % (Auto) 4.9 Eos % (Auto) 0.6 Baso % (Auto) 0.9 Neut # (Auto) 9.4 H Lymph # (Auto) 2.3 [place] # (Auto) 0.6 Eos # (Auto) 0.1 Baso # (Auto) 0.1 PT 11.1 INR 1.03 D-Dimer 0.31 Sodium 143 Potassium 4.0 Chloride 108 H Carbon Dioxide 25 Anion Gap 14.0 BUN 18 Creatinine 1.10 Estimated Creat Clear 150 Estimated GFR 71 Est GFR ( Amer) 86 Glucose 98 Calcium 9.8 Phosphorus Magnesium 2.2 Total Bilirubin 1.4 H AST 32 ALT 25 Alkaline Phosphatase 58 Troponin I 0.01 < 0.01 Total Protein 7.9 Albumin 4.8 Globulin 3.1 Albumin/Globulin Ratio 1.5 Triglycerides Cholesterol LDL Cholesterol Direct VLDL Cholesterol HDL Cholesterol Cholesterol/HDL Ratio 25-OH Vitamin D Total TSH 1.12 SARS-CoV-2 (PCR) Influenza A Untype (PCR) Influenza Type B (PCR) DS: Diagnosis Discharge Diagnosis (1) Angina pectoris: Status: Acute Code(s): I20.9 - Angina pectoris, unspecified (2) Obesity: Status: Acute Code(s): E66.9 - Obesity, unspecified (3) Family history of coronary arteriosclerosis: Status: Acute Code(s): Z82.49 - Family history of ischemic heart disease and other diseases of the circulatory system Meds Home Medications and Allergies Home Medications Medication Instructions Recorded Confirmed Type aspirin 81 mg tablet,delayed 81 mg PO DAILY 30 days #30 tabs 10/15/23 Rx release atorvastatin 40 mg tablet 80 mg (2 x 40 mg) PO HS 30 days 10/15/23 Rx #60 tabs ergocalciferol (vitamin D2) 1,250 50,000 unit PO WEEKLY 30 days #4 10/15/23 Rx mcg (50,000 unit) capsule caps metoprolol succinate 25 mg 25 mg PO DAILY 30 days #30 tabs 10/15/23 Rx tablet,extended release 24 hr nitroglycerin 0.4 mg sublingual 0.4 mg sublingual Q5MINP PRN Chest 10/15/23 Rx tablet (Nitrostat) Pain 30 days #30 tabs New Prescriptions to Start Prescriptions: Naveen Crooks atorvastatin Naveen Isabel ergocalciferol (vitamin D2) Naveen Isabel metoprolol succinate Naveen Isabel nitroglycerin [Nitrostat] Naveen Isabel Allergies Allergy/AdvReac Type Severity Reaction Status Date / Time Penicillins AdvReac Verified 05/10/23 13:45 Discharge Plan Disposition Patient Disposition: Home, Self-Care Condition: Fair Follow up Plan Follow up with: Lucian Capellan MD [Staff Physician] - 10/31/23 1:45 pm Prescriptions/Medication Reconciliation: New atorvastatin 40 mg Tablet 80 mg PO HS 30 Days Qty: 60 0RF aspirin 81 mg Tablet,Delayed Release (Dr/Ec) 81 mg PO DAILY 30 Days Qty: 30 0RF nitroglycerin [Nitrostat] 0.4 mg Tablet, Sublingual 0.4 mg sublingual Q5MINP PRN (Reason: Chest Pain) 30 Days Qty: 30 0RF metoprolol succinate 25 mg Tablet Extended Release 24 Hr 25 mg PO DAILY 30 Days Qty: 30 0RF ergocalciferol (vitamin D2) 1,250 mcg (50,000 unit) Capsule 50,000 unit PO WEEKLY 30 Days Qty: 4 0RF Problem Reconciliation Problems Reviewed?: Yes Patient Discharge Instructions ACTIVITY: Continue current activity DIET: continue same diet Patient Instructions: DI for Chest Pain Providers Primary Care Provider: Provider,Referral Admit Provider: Naveen Isabel Attending Provider: Naveen Isabel
--- NOTE | 2023-10-15 15:12 | HMH.PHAINT1 ---
Pharmacy Intervention Comments: DISCHARGE MEDICATION COUNSELING PROVIDED TO PATIENT ON NEW MEDICATIONS FOR INDICATION, DOSE, AND POSSIBLE SIDE EFFECTS. PATIENT VERBALIZED UNDERSTANDING.
--- NOTE | 2023-10-16 11:10 | CARE MANAGER ---
Called and spoke with patient regarding recent discharge. Patient stated that he is feeling OK, has not picked up nitroglycerin yet due to having to fill in [place] due to [place] [employer]. Patient had no concerns at time of call. Connected to cardiology for questions regarding f/u appt.
== END 2023-10-15 17:31 | disposition home or self-care (01) ==
LOC: ER 22:54 → 2ND 23:51
PROVIDERS: Nurse Practitioner Family; Physician Assistant; Admitting Provider Internal Medicine Adolescent Medicine; Emergency Provider Emergency Medicine; Visit Provider Internal Medicine Adolescent Medicine
DX: I20.89 Other forms of angina pectoris (principal); Z87.891 Personal history of nicotine dependence; Z82.49 Family history of ischemic heart disease and other diseases of the circulatory system; E66.9 Obesity, unspecified; Z68.34 Body mass index [BMI] 34.0-34.9, adult; R06.02 Shortness of breath; Z79.899 Other long term (current) drug therapy; R07.9 Chest pain, unspecified
CPT/HCPCS: 36415; 71045; 80053; 80061; 82306; 83735; 84100; 84443; 84484; 85025; 85378; 85610; 87636; 93005; 93306; 99285; G0378; J0131